=== PATIENT | male | born 1985 | race Caucasian/White ===

== ENCOUNTER 2022-01-26 16:42 | Emergency (ER) | payer BC, SELFPAY ==
[2022-01-26 16:43] VITALS: BP 159/105; PULSE 92; RESP 17; TEMP 36.6; O2SAT 96
--- NOTE | 2022-01-26 17:02 | EDS_ITS ---
HPI <NATHANIEL Vasquez - Last Filed: 01/26/22 17:37> History of Present Illness Chief Complaint: Other, Pain/Inj Narrative Narrative: 36-year-old male with no significant medical history presents to the emergency department with 2 weeks of neck pain. Patient denies any specific injury, patient states he woke up 2 weeks ago, had a muscle pain in his neck, this got much worse over the last couple days, patient states is now unbearable. He is use ibuprofen, heat, ice and nothing is helped. He denies any fevers, chills. He is able to move his neck in all directions however does cause discomfort. Denies any sick contacts, denies any upper extremity weakness or numbness or tingling PFSH <NATHANIEL Vasquez - Last Filed: 01/26/22 17:37> PFS Medical History no medical history Home Medications diazepam [Valium] 5 mg PO QHS PRN #5 tab 01/26/22 [Rx Last Taken Unknown] naproxen [Naprosyn] 500 mg PO BID PRN #20 tab 01/26/22 [Rx Last Taken Unknown] Allergy/AdvReac Type Severity Reaction Status Date / Time No Known Allergies Allergy Verified 01/26/22 16:45 Family History no significant family his Surgical History no surgical history Social History Smoking Status: Current every day smoker tobacco type: cigarettes ROS <NATHANIEL Vasquez - Last Filed: 01/26/22 17:37> ROS ED ROS Narrative Constitutional: Negative for fever, chills, weight loss, weakness Eyes: Negative for vision loss, vision change, double vision ENT: Negative for any sore throat, ear pain, congestion Cardiovascular: Negative for any chest pain, tightness, palpitations Respiratory: Negative for any cough, sputum production, hemoptysis, dyspnea, dyspnea on exertion, orthopnea Gastrointestinal: Negative for any abdominal pain, nausea, vomiting, diarrhea, constipation, blood in stool, blood in vomit : Negative for any urinary frequency, dysuria, retention, blood in urine Muscle skeletal: Negative for any muscle joint pain, stiffness, myalgias, arthralgias, back pain. Positive for neck pain Neurological: Negative for any headache, syncope, numbness or tingling, dizziness Skin: Negative for any rashes, lumps, itching, abrasions, lacerations Psychiatric: Negative for any depression, anxiety, stress, suicidal ideation, homicidal ideation Hematologic: Negative for any easy bruising, excessive bruising, easy bleeding Allergies: Negative for any eczema, hives, rash EXAM <NATHANIEL Vasquez - Last Filed: 01/26/22 17:37> Physical Exam Narrative Exam Narrative: Vital signs reviewed. HEET: Head normocephalic atraumatic, TMs clear bilaterally. Posterior pharynx is clear, moist mucous membranes. Nares clear bilaterally. Neck: Supple with no lymphadenopathy. No signs of meningismus, negative jolt sign. Patient does have tenderness to the left the cervical spine. This area appears to be a muscle spasm. Cardiac: Regular rate and rhythm no murmurs gallops or rubs, equal peripheral pulses bilaterally. Respiratory: Lungs clear to auscultation bilaterally. No chest tenderness. Abdomen: Soft, nontender, nondistended. No abdominal bruit or pulsatile masses. No hepatosplenomegaly Extremities: No peripheral edema, no signs of gross trauma or deformity. Active full range of motion of all extremities. Neuro: Cranial nerves II through XII intact, no focal neurological deficits. Skin: Clean dry and intact with no rash, purpura, petechiae, vesicles or pustules. Backs/flank: No CVA tenderness, no midline spinal tenderness, no deformity. Psych: Normal mood and affect. No SI, HI or acute psychosis. Const Vital Signs: 01/26/22 16:43 Temperature 97.9 F Temperature Source Temporal Pulse Rate 92 Respiratory Rate 17 Blood Pressure 159/105 H Blood Pressure Mean 123 Pulse Ox 96 Oxygen Delivery Method Room Air Positive well nourished and well developed General Appearance ED: well developed <Dr. Freddie Dimas, - Last Filed: 01/26/22 23:54> Physical Exam Const Vital Signs: 01/26/22 16:43 Temperature 97.9 F Temperature Source Temporal Pulse Rate 92 Respiratory Rate 17 Blood Pressure 159/105 H Blood Pressure Mean 123 Pulse Ox 96 Oxygen Delivery Method Room Air MDM <NATHANIEL Vasquez - Last Filed: 01/26/22 17:37> MDM MDM Narrative Medical decision making narrative: Patient appears well, patient appears nontoxic, vital signs are stable. Patient presents to the emergency department with complaints of left-sided neck pain has been ongoing for 2 weeks. Patient's physical examination is consistent with muscle skeletal pain, muscle skeletal spasm. Patient was given IM Toradol, Valium here. Patient will be placed on a short course of Valium, naproxen for home. Physical examination yields no red flag signs. Negative for any spinal abscess, cervical radiculopathy. Patient will follow up with his PCP and instructed to return for any worsening symptoms. <Dr. Freddie Dimas, DO - Last Filed: 01/26/22 23:54> [facility] Narrative Medical decision making narrative: This patient was seen with a PA/[employer] Individually assessed they patient including history and physical. I have reviewed everything on the chart that is available and agree with the documentation provided by the PA[employer] including discussion about the assessment, treatment plan, discussion, and return precautions. Patient has nontraumatic left-sided cervical paraspinal musculature pain. He does appear to be in spasm. No midline spinal tenderness, deformity, step-off. I believe this is musculoskeletal. He was given IM Toradol and Valium and did have some improvement. He will be given a short course of Valium for home. He is recommended to follow-up with his primary care to ensure resolution. He is given stretching exercises. He is to ice this area of concern. He can still use Tylenol and ibuprofen as adjuncts. Impression: 1. Cervical strain Discharge Plan Triage Chief Complaint: Other, Pain/Inj ED Midlevel Provider: Gene Beasley ED Provider: Freddie Dimas Dx/Rx/DC Orders Clinical Impression: Cervical strain Prescriptions: New diazepam [Valium] 5 mg tablet 5 mg PO QHS PRN (Reason: muscle spasm) Qty: 5 RF: 0 naproxen [Naprosyn] 500 mg tablet 500 mg PO BID PRN (Reason: pain) Qty: 20 RF: 0 Primary Care Provider: Care Physician,No Primary Referrals: Care Physician,No Primary [Primary Care Provider] - Activity Restrictions/Additional Instructions: You may use the Valium at nighttime use naproxen during the day and when at work. Please perform gentle stretching. Use ice and heat. Print Language: Salvadorean Disposition Disposition: Home, Self Care Discharge Date/Time: 01/26/22 17:42
[2022-01-26] MEDS: diazePAM 5 MG Tablet PO (17:17)
[2022-01-26] MEDS: Ketorolac 15 MG/ML Vial IM (17:17)
== END 2022-01-26 17:42 | disposition home or self-care (01) ==
PROVIDERS: Emergency Provider Student in an Organized Health Care Education/Training Program; Visit Provider Student in an Organized Health Care Education/Training Program
DX: S16.1XXA Strain of muscle, fascia and tendon at neck level, initial encounter (principal); X58.XXXA Exposure to other specified factors, initial encounter; F17.210 Nicotine dependence, cigarettes, uncomplicated
CPT/HCPCS: 96372; 99282

== ENCOUNTER 2025-07-06 05:30 | Emergency (ER) | payer SELFPAY ==
[2025-07-06] VITALS (8 sets, daily range): BP systolic 152–216; BP diastolic 112–143; PULSE 78–100; RESP 15–18; TEMP 36.4; O2SAT 98–100; BMI 30.9
[2025-07-06 06:00] LABS: Immature Granulocytes Count 0.050 X10^3/uL (0.0-0.0); Mean Corp Hgb Conc 35.7 g/dL (32-36); Mean Corpuscular Volume 104.2 fL (80-94); Mean Platelet Vol. 11.7 fl (6.2-12.0); NRBC Flagged by Analyzer 0 % (0-5); Platelet Count 204 K/mm3 (150-450); RBC Distribution Width CV 12.7 % (11.6-14.6); RBC Distribution Width SD 49.5 fl (35.1-43.9); Red Blood Count 5.49 M/mm3 (4.6-6.2); White Blood Count 11.6 K/mm3 (4.4-11.0)
[2025-07-06 06:01] LABS: Hematocrit 57.2 % (40-54)
[2025-07-06 06:02] LABS: Hemoglobin 20.4 g/dL (13.0-16.5)
--- NOTE | 2025-07-06 06:08 | RAD_ITS ---
PROCEDURE: RAD/Chest PA and Lateral
[2025-07-06] MEDS: Nitroglycerin SL (ED/IMG/CATH) 0.4 MG TABLET SL ×3 (06:16→06:32)
[2025-07-06 06:24] LABS: Anion Gap 13 (5-15); BUN 8 mg/dL (4-19); BUN/Creat Ratio 9.1 RATIO (10-20); Calcium,Total 8.9 mg/dL (7.6-11.0); Carbon Dioxide 24.6 mmol/L (21.0-32.0); Chloride 101 mmol/L (98-108); Estimated Creatinine Clearance 121.60 ml/min (50-250); Glucose 137 mg/dL (70-99); Potassium 3.7 mmol/L (3.3-5.1); Troponin T High Sensitivity 6 ng/L (<=22)
[2025-07-06] MEDS: Ketorolac 30 MG/ML Syringe IV (06:32)
[2025-07-06 07:09] LABS: D-Dimer Quantitative (DVT/PE) < 0.27 FEU/ug/m (0.27-0.49)
--- NOTE | 2025-07-06 07:33 | EX.ED.DYSGE1 ---
HPI History of Present Illness Chief Complaint: Chest Pain Informant: patient and spouse/S.O. Narrative Narrative: Patient is a 39-year-old male with past medical history of hypertension. He states he lost his insurance and has not been on his blood pressure medication for maybe over 1 year. He states that he went to bed normally and then awoke around midnight with midsternal to left-sided chest discomfort. He describes it as a pressure. He denies any radiation of the pain. He states there is no associated nausea vomiting diaphoresis or shortness of breath. He states he does smoke roughly 1 pack a day. He also admits to family history of cardiac disease. Therefore with concern that the chest discomfort is from a cardiac event he presents for evaluation. The patient denies any excessive stimulant use such as nicotine or caffeine and he denies any illicit drug. [facility] Medical History Hypertension Home Medications ?Medication ?Instructions ?Recorded ?Last Taken ?Type losartan 100 1 tab PO DAILY 30 days #30 tabs 07/06/25 Unknown Rx mg-hydrochlorothiazide 12.5 mg tablet Allergy/AdvReac Type Severity Reaction Status Date / Time No Known Allergies Allergy Verified 07/06/25 05:31 Social History Smoking Status: Current every day smoker tobacco type: cigarettes ROS ROS ED Constitutional Constitutional ED: Denies chills or fever(s) Eyes Eyes: Denies blurry vision or change in vision ENT ENT ED: Denies sore throat Cardiovascular Cardiovascular: Reports chest pain; Denies palpitations or racing heartbeat Respiratory/Chest Respiratory/Chest: Denies cough or dyspnea Gastrointestinal Gastrointestinal: Denies abdominal pain, diarrhea, nausea or vomiting Musculoskeletal Musculoskeletal: Denies back pain Integumentary Denies rash Neurologic Neurologic: Denies headache(s), paresthesias or weakness Hematologic/Lymphatic Hematologic/Lymphatic: Denies easy bleeding or easy bruising EXAM Physical Exam Const Vital Signs: 07/06/25 05:31 07/06/25 05:31 07/06/25 06:16 Temperature 97.6 F L Temperature Source Oral Pulse Rate 100 88 Respiratory Rate 18 Respiratory Effort Normal Non-Labored Blood Pressure 216/137 H 204/143 H Blood Pressure Mean 163 Pulse Ox 99 Oxygen Delivery Method Room Air 07/06/25 06:22 07/06/25 06:31 07/06/25 06:32 Temperature Temperature Source Pulse Rate 92 85 93 Respiratory Rate 15 Respiratory Effort Blood Pressure 178/122 H 171/120 H 171/120 H Blood Pressure Mean 137 Pulse Ox 98 Oxygen Delivery Method Room Air 07/06/25 06:46 07/06/25 07:00 Temperature Temperature Source Pulse Rate 84 Respiratory Rate 16 Respiratory Effort Blood Pressure 171/120 H 158/119 H Blood Pressure Mean 137 132 Pulse Ox 98 Oxygen Delivery Method Room Air Positive well nourished and well developed General Appearance ED: well developed; Negative for pallor HEENT HEENT Narrative: Normocephalic atraumatic Eyes PERRL and EOMs intact bilaterally General Eye ED: Negative for scleral icterus Neck supple and no JVD Chest Wall palpation of chest normal Chest Narrative: No bony deformity or subcutaneous emphysema noted Resp normal respiratory effort and clear to auscultation bilaterally Cardio regular rate and regular rhythm Rate: other Other Details: Heart is regular rate and rhythm without murmurs rubs or Radial and carotid pulses are equal and symmetric No carotid bruit noted GI normal to inspection, nondistended, normoactive bowel sounds, non-tender, non-distended and no masses GI Narrative: No voluntary guarding or rigidity or pulsatile mass Auscultation: normoactive bowel sounds Palpation: soft Extremity normal to inspection Extremity Narrative: No asymmetric edema no pitting edema negative Homans' sign bilaterally Neuro oriented x3, CN's II-XII intact bilaterally and no sensory deficits noted Neuro Narrative: GCS of 15 Cranial nerves II through XII are grossly intact without focal neurologic deficit No pronator drift no dysmetria no truncal ataxia NIH stroke scale score of 0 Sensorium / Orientation: alert Motor Exam: strength 5/5 throughout Psych mental status grossly normal Skin no rashes or lesions noted General Skin Exam: Negative for jaundice or pallor MDM MDM MDM Narrative Medical decision making narrative: Patient arrived to the ER hypertensive but has a past medical history of this and has been off his medications for approximately 1 year. He does smoke and has a family history of cardiovascular disease however in order to assess for acute coronary syndrome versus cardiac dysrhythmia an EKG was obtained. EKG revealed normal sinus rhythm without ischemic finding. In order to assess for signs of endorgan damage from the hypertension basic blood work was ordered as well. I did not feel the need to order a head CT as he does not have a headache and his neurologic exam is normal going against hypertensive encephalopathy. He denies radiation of the pain and pulses are equal and I have low concern for dissection as a cause of this chest discomfort but with the associated hypertension I do like to perform a D-dimer. D-dimer was negative going against PE or dissection. The initial troponin was 6 going against ACS especially as patient has had discomfort for approximately 6 hours. The patient was provided sublingual nitro and aspirin secondary to the chest discomfort and hypertension and he was also given clonidine and labetalol because of the elevated blood pressure. With the provided medication his blood pressure did reduce between 15 and 25% which is the goal reduction in the ER. With reduction of the blood pressure he also reported resolution of his chest discomfort. Therefore at this time with workup revealing no signs of endorgan damage and patient's blood pressure improvement between the recommended amount in the ER do not feel there is need for further evaluation or admission. He will be started on his previous antihypertensive medications and is otherwise safe for discharge. History & Record Review Discussion w/independent historian: Patient and Significant other Lab Data Attestation: I reviewed the patient's lab results. Labs: Laboratory Results - last 24 hr 07/06/25 07/06/25 07/06/25 05:40 06:20 06:41 WBC 11.6 H RBC 5.49 Hgb 20.4 H* Hct 57.2 H MCV 104.2 H MCH 37.2 H MCHC 35.7 RDW Std Deviation 49.5 H RDW Coeff of Mackenzie 12.7 Plt Count 204 MPV 11.7 Immature Gran % (Auto) 0.400 Neut % (Auto) 57.2 Lymph % (Auto) 30.5 [place] % (Auto) 9.1 Eos % (Auto) 1.6 Baso % (Auto) 1.2 H Absolute Neuts (auto) 6.6 Absolute Lymphs (auto) 3.54 Nucleated RBC % 0 D-Dimer Quant (PE/DVT) Cancelled < 0.27 L Sodium 138 Potassium 3.7 Chloride 101 Carbon Dioxide 24.6 Anion Gap 13 BUN 8 Creatinine 0.89 Estim Creat Clear Calc 121.60 Est GFR (MDRD) Non-Af 111 BUN/Creatinine Ratio 9.1 L Glucose 137 H Calcium 8.9 Troponin T High Sens 6 Radiography Diagnostic Testing: Clinical Impression(s) from Imaging Studies Chest X-Ray 07/06/25 06:08 IMPRESSION: No acute pulmonary process Reading Location: [address] Chest x-ray as interpreted by the emergency medicine physician reveals no acute infiltrate pneumothorax pleural effusion or widening of the mediastinum Discharge Plan Triage Chief Complaint: Chest Pain ED Provider: Brandon Sol Dx/Rx/DC Orders Clinical Impression: Accelerated hypertension, Nonspecific chest pain, Tobacco use Instructions: ED Chest Pain, Uncertain Cause, ED High Blood Pressure Hypertension Prescriptions: New losartan-hydrochlorothiazide 100-12.5 mg tablet 1 tab PO DAILY 30 Days Qty: 30 2RF Primary Care Provider: Missy Collins NP Referrals: Missy Collins NP, CLINICAL RESEARCH TECHNICIAN-C [Primary Care Provider, Medical] Activity Restrictions/Additional Instructions: Please check your blood pressure once a day or once every other day and keep track of your pressure and heart rate in that way your family doctor will know if they need to adjust medication for your hypertension. A prescription for your previous losartan hydrochlorothiazide at 100-12.5 mg was sent to your pharmacy. Please been taking it today once you pick it up. If you have any further concerns or worsening symptoms please return to the ER for repeat evaluation Print Language: Tristanian Disposition Disposition: Home, Self Care
[2025-07-06 07:56] LABS: Troponin T High Sens 2 HR 6 ng/L (<=22)
== END 2025-07-06 08:01 | disposition home or self-care (01) ==
PROVIDERS: Emergency Provider Emergency Medicine; PCP Registered Nurse; Visit Provider Emergency Medicine
DX: I10 Essential (primary) hypertension (principal); R07.89 Other chest pain; T46.5X6A Underdosing of other antihypertensive drugs, initial encounter; Z91.120 Patient's intentional underdosing of medication regimen due to financial hardship; F17.210 Nicotine dependence, cigarettes, uncomplicated
CPT/HCPCS: 71046; 80048; 84484; 85025; 85379; 93005; 96374; 96375; 99283; A4216